=== PATIENT | female | born 1990 | race African-American/Black ===

== ENCOUNTER 2022-11-01 01:11 | Emergency (ER) | payer SELFPAY ==
[~2022-11-01] VITALS: Ht 170.2 cm; Wt 60.0 kg
[2022-11-01 04:30] VITALS: BP 119/81
== END 2022-11-01 04:30 | disposition home or self-care (01) ==
LOC: ER 01:24 → EDBD 01:24 → ER 04:30
DX: R45.1 Restlessness and agitation (principal)
CPT/HCPCS: 99283